=== PATIENT | male | born 1995 ===

== ENCOUNTER 2021-05-18 17:13 | Emergency (ER) | payer SELFPAY ==
[~2021-05-18] VITALS: Ht 180.3 cm; Wt 81.8 kg
[2021-05-18 17:16] VITALS: BP 141/83
== END 2021-05-18 18:07 ==
LOC: ER 17:14
DX: R93.89 Abnormal findings on diagnostic imaging of other specified body structures (principal); F17.200 Nicotine dependence, unspecified, uncomplicated; F15.90 Other stimulant use, unspecified, uncomplicated; Z72.89 Other problems related to lifestyle
CPT/HCPCS: 74018; 99283